=== PATIENT | female | born 1945 | race Caucasian/White ===

== ENCOUNTER → 2016-05-06 | Outpatient (CLI) | payer MEDICARE ==
--- NOTE | 2016-05-06 14:42 | REPMRS ---
Patient History The patient states she had a clinical breast exam in 05/07 Patient is postmenopausal. No known family history of cancer. Took hormonal contraceptives for 2 years. Taking estrogen for 10 years. Took unspecified hormones for 5 years. Digital Woman Screen Mammo: May 06, 2016 - Exam #: [id number] Bilateral CC and MLO view(s) were taken. Technologist: Mayda Alejandre, Technologist Prior study comparison: February 28, 2015, digital bilateral screening mammo, performed at [facility]. March 10, 2014, bilateral bilat screen digital mammo, performed at ([facility]). March 09, 2013, bilateral bilat screen digital mammo, performed at ([facility]). FINDINGS: There are scattered fibroglandular densities. There has been no change in the appearance of the mammogram from the prior studies. There is a mild amount of scattered fibroglandular density which is fairly symmetric. There is no interval development of dominant mass, architectural distortion, or clustered microcalcification suggestive of malignancy. ASSESSMENT: BI-RADS/ACR category 1 mammogram. Negative. Recommendation Routine screening mammogram in 1 year (for women over age 40). This mammogram was interpreted with the aid of an FDA-approved computer-aided dectection system. Electronically Signed By: Braydon Velasquez MD 05/06/16 [id number]
== END | disposition home or self-care (01) ==
LOC: M WHC 13:20
PROVIDERS: ATTEND Nurse Practitioner
DX: Z12.31 Encounter for screening mammogram for malignant neoplasm of breast (principal); Z78.0 Asymptomatic menopausal state; Z92.0 Personal history of contraception; Z92.23 Personal history of estrogen therapy; Z92.29 Personal history of other drug therapy

== ENCOUNTER → 2017-07-04 | Outpatient (CLI) | payer MEDICARE | LOC: M WHC 12:26 | DX: Z12.31 Encounter for screening mammogram for malignant neoplasm of breast (principal); M84.80 Other disorders of continuity of bone, unspecified site; Z78.0 Asymptomatic menopausal state | CPT/HCPCS: 77067 ==

== ENCOUNTER → 2018-07-21 | Outpatient (CLI) | payer MEDICARE ==
--- NOTE | 2018-07-21 15:02 | REPMRS ---
Patient History The patient states she had a clinical breast exam in 06/2018. No known family history of cancer. Took hormonal contraceptives for 2 years. Took estrogen for 10 years. Took unspecified hormones for 5 years. 3D TOMOSYNTHESIS WAS PERFORMED. Digital Woman Screen Mammo: July 21, 2018 - Exam #: [id number] Bilateral CC and MLO view(s) were taken. Technologist: Lizabeth Kim, Technologist Prior study comparison: July 04, 2017, digital woman screen mammo performed at [facility]. May 06, 2016, digital woman screen mammo performed at [facility]. FINDINGS: There are scattered fibroglandular densities. There has been no change in the appearance of the mammogram from the prior studies. There is a mild amount of residual fibroglandular tissue which is fairly symmetric. There is no interval development of dominant mass, architectural distortion, or clustered microcalcification suggestive of malignancy. Assessment: BI-RADS/ACR category 1 mammogram. Negative Mammogram. Recommendation Routine screening mammogram in 1 year (for women over age 40). This mammogram was interpreted with the aid of an FDA-approved computer-aided dectection system. Electronically Signed By: Martinez Pena MD 07/21/18 [id number]
== END ==
LOC: M WHC 13:58
PROVIDERS: ATTEND Nurse Practitioner
DX: Z12.31 Encounter for screening mammogram for malignant neoplasm of breast (principal)